=== PATIENT | female | born 1995 | race Caucasian/White ===

== ENCOUNTER 2019-11-20 10:43 | Emergency (ER) | payer MEDICAID, OTHER ==
[~2019-11-20] VITALS: Ht 172.7 cm; Wt 126.1 kg
[2019-11-20 13:46] VITALS: BP 139/87
== END 2019-11-20 14:08 | disposition home or self-care (01) ==
LOC: ER 10:43
DX: G44.209 Tension-type headache, unspecified, not intractable (principal)